=== PATIENT | male | born 1995 | race Two or more races ===

== ENCOUNTER 2020-05-21 19:36 | Emergency (ER) | payer SELFPAY ==
[~2020-05-21] VITALS: Ht 182.9 cm; Wt 117.9 kg
[2020-05-21 23:00] VITALS: BP 136/81
== END 2020-05-22 00:09 | disposition home or self-care (01) ==
LOC: ER 19:36
DX: S39.012A Strain of muscle, fascia and tendon of lower back, initial encounter (principal); V49.9XXA Car occupant (driver) (passenger) injured in unspecified traffic accident, initial encounter; Y93.89 Activity, other specified; Y92.89 Other specified places as the place of occurrence of the external cause; Y99.8 Other external cause status
CPT/HCPCS: 71250; 72125; 74176